=== PATIENT | female | born 1995 | race Caucasian/White ===

== ENCOUNTER 2017-06-18 19:49 | Emergency (ER) | payer OTHER ==
[~2017-06-18] VITALS: Ht 165.1 cm; Wt 65.2 kg
[~2017-06-18 19:49] MED LIST: ACETAMINOPHEN500 MG PO; AMITIZA8 MICROGRA PO; DEPAKOTE125 MG PO; HYDROXYZINE HCL25 MG PO; IBUPROFEN800 MG PO; IMITREX25 MG PO; METHADONE 22 MG/1 ML PO; NAPROSYN-EC500 MG PO; NO HOME MEDS; PROMETHAZINE HC25 M1 PO; PT DOES NOT KNOW; REGLAN5 MG PO; TRI-SPRINTEC1 EACH PO; VENLAFAXINE HCL75 M3 PO; ZOFRAN ODT4 MG PO; ZOFRAN ODT8 MG PO
[2017-06-18 22:08] LABS: CHLORIDE 110 mEq/L (99-109); POTASSIUM 3.7 mEq/L (3.7-5.4); SODIUM 137 mEq/L (136-147)
[2017-06-18 22:10] LABS: GLUCOSE 67 mg/dL (70-99)
[2017-06-18 22:14] LABS: CREATININE 0.7 mg/dL (0.6-1.3); GFR ESTIMATE (CALCULATED) > 59 mL/min/
[2017-06-18 22:15] LABS: UREA NITROGEN (BUN) 14 mg/dL (9-23)
[2017-06-18 22:40] LABS: APPEARANCE SL.HAZY ((CLEAR)); BILIRUBIN NEGATIVE; BLOOD NEGATIVE; COLOR YELLOW ((YELLOW)); GLUCOSE (STRIP) NEGATIVE; KETONES 80; LEUKOCYTES TRACE; NITRITE NEGATIVE; PROTEIN (STRIP) 30; SPECIFIC GRAVITY 1.027 (1.000-1.030)
[2017-06-18 22:56] LABS: RED BLOOD CELLS 0-5 /HPF (0-5); WHITE BLOOD CELLS 0-5 /HPF (0-5)
[2017-06-18 22:57] LABS: BACTERIA RARE /HPF; EPITHELIAL CELLS 2+ /HPF; MUCUS 3+ /LPF
[2017-06-19] MEDS ORDERED: DICLEGIS DR 101 EACH PO (00:11)
[2017-06-19] MEDS ORDERED: ZOFRAN ODT8 MG PO (00:11)
[2017-06-19 00:22] VITALS: BP 108/58
== END 2017-06-19 00:22 | disposition home or self-care (01) ==
LOC: EME 19:49
PROVIDERS: Physician Assistant
DX: O21.9 Vomiting of pregnancy, unspecified (principal); Z79.891 Long term (current) use of opiate analgesic; Z88.5 Allergy status to narcotic agent; Z88.8 Allergy status to other drugs, medicaments and biological substances; Z3A.01 Less than 8 weeks gestation of pregnancy
CPT/HCPCS: 80048; 81003; 82948; 99281; 99284; J2405; J7030

== ENCOUNTER 2017-07-21 16:12 | Emergency (ER) | payer OTHER ==
[~2017-07-21] VITALS: Ht 165.1 cm; Wt 68.6 kg
[~2017-07-21 16:12] MED LIST changes: +DICLEGIS DR 101 EACH PO
[2017-07-21] MEDS ORDERED: ZOFRAN ODT4 MG PO (16:57)
[2017-07-21] MEDS ORDERED: KRISTALOSE20 GM PO (16:57)
[2017-07-21 17:14] VITALS: BP 102/51
== END 2017-07-21 17:16 | disposition home or self-care (01) ==
LOC: EME 16:12
DX: O99.611 Diseases of the digestive system complicating pregnancy, first trimester (principal); K59.00 Constipation, unspecified; R11.0 Nausea; Z3A.11 11 weeks gestation of pregnancy; Z88.5 Allergy status to narcotic agent
CPT/HCPCS: 99281; 99283

== ENCOUNTER 2017-09-10 22:01 | Emergency (ER) | payer OTHER ==
[~2017-09-10] VITALS: Ht 165.1 cm; Wt 72.5 kg
[~2017-09-10 22:01] MED LIST changes: +KRISTALOSE20 GM PO
[2017-09-10 22:57] LABS: BASOPHIL (%) 0.2 % (0-1); EOSINOPHIL (%) 2.2 % (0-5); EOSINOPHIL COUNT 0.2 K/uL (0-0.3); HEMATOCRIT 31.6 % (36.0-46.0); IMMATURE GRANULOCYTE (%) 0.4 % (0.0-0.7); LYMPHOCYTE (%) 20.7 % (15-42); LYMPHOCYTE COUNT 1.7 K/uL (1.0-2.8); MCH 31.7 PG (29.0-34.0); MCHC 34.8 G/DL (30.0-36.0); MCV 91.1 FL (83-99); MONOCYTE (%) 6.4 % (3-12); MONOCYTE COUNT 0.5 K/uL (0-0.8); NEUTROPHIL (%) 70.1 % (45-76); NEUTROPHIL COUNT 5.8 K/uL (1.8-6.4); PLATELET COUNT 166 K/uL (156-360); RBC DIS.WIDTH-CV 13.1 % (11.8-14.6); RBC DIS.WIDTH-SD 42.6 % (39-53); RED BLOOD COUNT 3.47 M/uL (3.80-5.20); WHITE BLOOD COUNT 8.3 K/uL (4.1-10.2)
[2017-09-10 23:18] LABS: ALBUMIN 3.4 G/DL (3.2-4.8); CHLORIDE 108 MEQ/L (99-109); POTASSIUM 3.5 MEQ/L (3.7-5.4); SODIUM 137 MEQ/L (136-147); TOTAL BILIRUBIN 0.2 MG/DL (0.0-1.0)
[2017-09-10 23:23] LABS: ALKALINE PHOSPHATASE 41 IU/L (3-129); ALT (GPT) 5 IU/L (3-49); AST (GOT) 11 IU/L (2-34); CREATININE 0.7 MG/DL (0.6-1.3); GFR ESTIMATE (CALCULATED) > 59 mL/min/; GLUCOSE 99 mg/dL (70-99); TOTAL PROTEIN 5.5 G/DL (6.4-8.3); UREA NITROGEN (BUN) 8 mg/dL (9-23)
[2017-09-11 00:15] LABS: APPEARANCE CLEAR ((CLEAR)); BILIRUBIN NEGATIVE; BLOOD NEGATIVE; COLOR YELLOW ((YELLOW)); GLUCOSE (STRIP) NEGATIVE; KETONES NEGATIVE; LEUKOCYTES NEGATIVE; NITRITE NEGATIVE; PROTEIN (STRIP) NEGATIVE; SPECIFIC GRAVITY 1.016 (1.000-1.030); UCUL ADDED? NO; UROBILINOGEN 0.2 MG/DL (0.2-1.0)
[2017-09-11 00:56] VITALS: BP 104/52
== END 2017-09-11 00:58 | disposition home or self-care (01) ==
LOC: EME → EDBD 22:01 → EME 22:01
PROVIDERS: Emergency Medicine
DX: O26.892 Other specified pregnancy related conditions, second trimester (principal); R06.02 Shortness of breath; R10.30 Lower abdominal pain, unspecified; Z3A.18 18 weeks gestation of pregnancy; O99.332 Smoking (tobacco) complicating pregnancy, second trimester; F17.200 Nicotine dependence, unspecified, uncomplicated; O99.322 Drug use complicating pregnancy, second trimester; F11.20 Opioid dependence, uncomplicated; Z88.5 Allergy status to narcotic agent
CPT/HCPCS: 80053; 81003; 85025; 99281; 99285; J2405; J7030

== ENCOUNTER 2017-12-09 14:09 | Emergency (ER) | payer OTHER ==
[~2017-12-09] VITALS: Ht 165.1 cm; Wt 75.5 kg
[2017-12-09 15:16] LABS: HEMATOCRIT 30.3 % (36.0-46.0); HEMOGLOBIN 10.3 G/DL (11.9-15.5); MCH 31.5 PG (29.0-34.0); MCV 92.7 FL (83-99); PLATELET COUNT 130 K/uL (156-360); RBC DIS.WIDTH-CV 12.3 % (11.8-14.6); RBC DIS.WIDTH-SD 41.3 % (39-53); RED BLOOD COUNT 3.27 M/uL (3.80-5.20); WHITE BLOOD COUNT 10.2 K/uL (4.1-10.2)
[2017-12-09 15:26] LABS: ALBUMIN 3.4 g/dL (3.2-4.8); CHLORIDE 105 mEq/L (99-109); SODIUM 136 mEq/L (136-147)
[2017-12-09 15:29] LABS: GLUCOSE 79 mg/dL (70-99); TOTAL PROTEIN 6.2 g/dL (6.4-8.3)
[2017-12-09 15:30] LABS: TOTAL BILIRUBIN 0.3 mg/dL (0.0-1.0)
[2017-12-09 15:32] LABS: ALKALINE PHOSPHATASE 104 IU/L (3-129); CREATININE 0.7 mg/dL (0.6-1.3); GFR ESTIMATE (CALCULATED) > 59 mL/min/
[2017-12-09 15:33] LABS: UREA NITROGEN (BUN) 10 mg/dL (9-23)
[2017-12-09 15:34] LABS: AST (GOT) 16 IU/L (2-34); DIRECT BILIRUBIN 0.1 mg/dL (0.0-0.3)
[2017-12-09 15:35] LABS: ALT (GPT) 8 IU/L (3-49)
[2017-12-09 15:36] LABS: LIPASE 15 U/L (1.0-51.0)
[2017-12-09 16:12] LABS: APPEARANCE CLEAR ((CLEAR)); BILIRUBIN NEGATIVE; BLOOD NEGATIVE; COLOR YELLOW ((YELLOW)); GLUCOSE (STRIP) NEGATIVE; KETONES NEGATIVE; LEUKOCYTES SMALL; NITRITE NEGATIVE; PROTEIN (STRIP) 30; SPECIFIC GRAVITY 1.028 (1.000-1.030)
[2017-12-09 16:19] LABS: BACTERIA RARE /HPF; EPITHELIAL CELLS 1+ /HPF; MUCUS 4+ /LPF; RED BLOOD CELLS 0-5 /HPF (0-5); WHITE BLOOD CELLS 0-5 /HPF (0-5)
[2017-12-09 18:05] VITALS: BP 98/59
[2017-12-09] MEDS ORDERED: ZANTAC300 MG PO (18:05)
[2017-12-09] MEDS ORDERED: REGLAN10 MG PO (18:05)
== END 2017-12-09 18:15 | disposition home or self-care (01) ==
LOC: EME 14:09
PROVIDERS: Physician Assistant
DX: O21.0 Mild hyperemesis gravidarum (principal); K92.0 Hematemesis; O99.333 Smoking (tobacco) complicating pregnancy, third trimester; Z3A.28 28 weeks gestation of pregnancy; F17.200 Nicotine dependence, unspecified, uncomplicated
CPT/HCPCS: 80048; 80076; 81003; 83690; 85027; 99281; 99285; J1200; J2765; J7030; S0028